=== PATIENT | male | born 1945 | race Two or more races ===

== ENCOUNTER 2016-12-26 13:08 | Emergency (ER) | payer MEDICARE, MEDICAID ==
[~2016-12-26 13:08] MED LIST: ASPI81TA2 PO; LOSA50TA6 PO
[2016-12-26] MEDS ORDERED: KETOROLAC 15 MG/ML VIAL. IV ONE (15:45)
[2016-12-26] MEDS ORDERED: DIAZEPAM 10 MG/2 ML DISP.SYRIN. IV ONE (15:45)
--- NOTE | 2016-12-26 15:57 | ED.ADGEN ---
Past Medical History Past Medical History: Hypertension, Other Additional Past Medical Histor: Vertigo, Kidney stones. Past Surgical History: No Surgical History Alcohol Use: None Drug Use: None Adult General Chief Complaint Chief Complaint: LOWER EXT PAIN HPI HPI Patient is a 71 year old man, history of vertigo, renal calculi, hypertension, who presents to the emergency department with a complaint of right flank pain over the past several days, with pain in his right buttock rating down into his right leg and right lower abdomen. Patient states he's had pain coming and going over the past several months. Over the past several days however the pain is began radiating into his leg. He denies any dysuria, any frequency or urgency , any hematuria. He states that the pain he is experiencing at this time is similar to the pain experienced with his previous renal calculi. Denies any nausea or vomiting, denies any focal weakness, states he does have some numbness in the lateral aspect of the right leg. Denies any injuries. Denies any shortness of breath or chest pain, any fevers or chills. Patient has been using ibuprofen at home, last dose was at 9:00 this morning. Denies any other medications aside from his blood pressure medication. Patient is primarily Bengali speaking, translation is assisted by family at bedside at patient's request. Review of Systems Review of Systems Constitutional: Denies fever or chills. [] Eyes: Denies change in visual acuity. [] HENT: Denies nasal congestion or sore throat. [] Respiratory: Denies cough or shortness of breath. [] Cardiovascular: Denies chest pain or edema. [] GI: Patient with right flank pain radiate down into the right leg, buttock and right lower quadrant of the abdomen to a degree, denies nausea, vomiting, bloody stools or diarrhea. [] : Denies dysuria. [] Musculoskeletal: Right flank pain, Integument: Denies rash. [] Neurologic: Denies headache, focal weakness or sensory changes. [] Endocrine: Denies polyuria or polydipsia. [] Lymphatic: Denies swollen glands. [] Psychiatric: Denies depression or anxiety. [] Current Medications Current Medications Current Medications Medications (Trade) Dose Ordered Sig/John Start Time Stop Time Status Last Admin Dose Admin Diazepam (Valium) 5 mg 1X ONCE 12/26/16 15:45 12/26/16 15:49 DC 3/17/17 16:27 5 MG Ketorolac Tromethamine (Toradol) 10 mg 1X ONCE 12/26/16 15:45 12/26/16 15:49 DC 12/26/16 16:29 10 MG Allergies Allergies Allergies Coded Allergies Type Severity Reaction Last Updated Verified No Known Drug Allergies 04/10/16 No Physical Exam Physical Exam Constitutional: Well developed, well nourished, no acute distress, non-toxic appearance. [] HENT: Normocephalic, atraumatic, bilateral external ears normal, oropharynx moist, no oral exudates, nose normal. [] Eyes: PERRLA, EOMI, conjunctiva normal, no discharge. [] Neck: Normal range of motion, no tenderness, supple, no stridor. [] Cardiovascular:Heart rate regular rhythm, no murmur , S1, S2, rubs or gallops. [ ] Lungs & Thorax: Bilateral breath sounds clear to auscultation, no wheezing, rhonchi, rales. No chest wall tenderness or crepitus. [] Abdomen: Bowel sounds normal, soft, minimal tenderness to palpation in the right lower quadrant, patient has is pain radiating into the right lower extremity in the thigh region, and also in the lateral femur region, patient also with pain in the right buttock, difficulty bearing weight secondary to pain on that side, no masses, no pulsatile masses. [] Skin: Warm, dry, no erythema, no rash. [] Back: No tenderness, no CVA tenderness. [] Extremities: Tenderness in the piriformis region, although no spasm is identified patient has pain in the right CVA region, radiating down into the right buttock and right leg, difficulty ambulating secondary to pain, no cyanosis, no clubbing, ROM intact, no edema. [] Neurologic: Alert and oriented X 3, normal motor function, normal sensory function, no focal deficits noted. [] Psychologic: Affect normal, judgement normal, mood normal. [] Current Patient Data Vital Signs Vital Signs Date Time Temp Pulse Resp B/P Pulse Ox O2 Delivery O2 Flow Rate FiO2 12/26/16 15:02 72 18 150/95 97 Room Air 12/26/16 13:31 97.9 97.9 Lab Values Laboratory Tests Test 12/26/16 16:03 12/26/16 16:20 Urine Collection Type Unknown Urine Color Yellow Urine Clarity Clear Urine pH 6.0 Urine Specific Chavies 1.025 Urine Protein Negativemg/dL (NEG-TRACE) Urine Glucose (UA) Negativemg/dL (NEG) Urine Ketones (Stick) Negativemg/dL (NEG) Urine Blood Negative (NEG) Urine Nitrite Negative (NEG) Urine Bilirubin Negative (NEG) Urine Urobilinogen Dipstick 0.2mg/dL (0.2 mg/dL) Urine Leukocyte Esterase Negative (NEG) Urine RBC Rare/HPF (0-2) Urine WBC Rare/HPF (0-4) Urine Squamous Epithelial Cells Occ/LPF Urine Bacteria 0/HPF (0-FEW) Urine Mucus Marked/LPF White Blood Count 6.4x10^3/uL (4.0-11.0) Red Blood Count 4.53x10^6/uL (4.30-5.70) Hemoglobin 14.8g/dL (13.0-17.5) Hematocrit 43.9% (39.0-53.0) Mean Corpuscular Volume 97fL (79-100) Mean Corpuscular Hemoglobin 33pg (25-35) Mean Corpuscular Hemoglobin Concent 34g/dL (31-37) Red Cell Distribution Width 13.1% (11.5-14.5) Platelet Count 192x10^3/uL (140-400) Neutrophils (%) (Auto) 53% (31-73) Lymphocytes (%) (Auto) 35% (24-48) Monocytes (%) (Auto) 8% (0-9) Eosinophils (%) (Auto) 3% (0-3) Basophils (%) (Auto) 1% (0-3) Neutrophils # (Auto) 3.4x10^3uL (1.8-7.7) Lymphocytes # (Auto) 2.2x10^3/uL (1.0-4.8) Monocytes # (Auto) 0.5x10^3/uL (0.0-1.1) Eosinophils # (Auto) 0.2x10^3/uL (0.0-0.7) Basophils # (Auto) 0.0x10^3/uL (0.0-0.2) Sodium Level 146mmol/L (136-145) H Potassium Level 4.0mmol/L (3.5-5.1) Chloride Level 109mmol/L (98-107) H Carbon Dioxide Level 27mmol/L (21-32) Anion Gap 10 (6-14) Blood Urea Nitrogen 11mg/dL (8-26) Creatinine 1.2mg/dL (0.7-1.3) Estimated GFR (Cockcroft-Gault) 59.7 BUN/Creatinine Ratio 9 (6-20) Glucose Level 111mg/dL (70-99) H Calcium Level 9.1mg/dL (8.5-10.1) Total Bilirubin 0.6mg/dL (0.2-1.0) Aspartate Amino Transferase (AST) 15U/L (15-37) Alanine Aminotransferase (ALT) 33U/L (16-63) Alkaline Phosphatase 139U/L (46-116) H Total Protein 7.3g/dL (6.4-8.2) Albumin 3.9g/dL (3.4-5.0) Albumin/Globulin Ratio 1.1 (1.0-1.7) Laboratory Tests 12/26/16 16:20 Laboratory Tests 12/26/16 16:20 Radiology/Procedures Radiology/Procedures [] [facility] [address] [place] [address] IMAGING REPORT Signed PATIENT: AMBREEN HERNANDEZ ACCOUNT: [id number] : 1945 LOCATION: ER AGE: 71 SEX: M EXAM STATUS: REG ER ORD. PHYSICIAN: BLAKE GREENFIELD DO REASON: R flank pain/hx renal calculi PROCEDURE: ABDOMEN PELVIS WO CONTRAST Examination: CT of the abdomen pelvis without contrast History: History of right-sided flank pain for one month radiating down the right leg Comparison: None available Technique: Axial CT images of the abdomen pelvis were performed without contrast. Coronal Sagittal reformats were performed. PQRS Compliance Statement: One or more of the following individualized dose reduction techniques were utilized for this examination: 1. Automated exposure control 2. Adjustment of the mA and/or kV according to patient size 3. Use of iterative reconstruction technique Findings: Minimal left lung base atelectasis. No evidence of free air identified in the abdomen. The evaluation of the solid organs is limited due to lack of IV contrast. The evaluation of the bowel is limited due to lack of oral contrast. The noncontrasted liver, spleen, adrenals grossly appears unremarkable. The gallbladder is mildly distended. The stomach is mildly distended. Small paraesophageal subcentimeter densities probably tiny lymph nodes identified. The visualized pancreas grossly appears unremarkable. The small bowel is nondilated. The appendix grossly appears unremarkable. Feces and gas noted throughout the colon. Punctate 4 mm intrarenal collecting system calculus identified in the right kidney. Few intrarenal collecting system calculi identified in the left kidney with the largest measuring 7 mm in the superior pole of the left kidney. There is a tiny exophytic 8 mm density identified in the midpole and in the posterior midpole of the left kidney could be cysts or cystic lesions. No evidence of hydronephrosis identified. Mild prostatomegaly. The urinary bladder is mildly distended. There is a tiny calcification measuring 2 mm identified in the superior tip of the urinary bladder best seen on series 2 image 164. Mild degenerative changes lumbar spine. Impression: 1. Tiny subcentimeter bilateral intrarenal collecting system calculi. No evidence of hydronephrosis. 2. 8 mm opacities projecting from the left kidney could be cysts or cystic lesions are difficult to characterize on this examination and follow-up nonemergent ultrasound kidneys is recommended. 3. Tiny 2 mm calcification identified within the superior anterior wall of the urinary bladder, nonspecific could be tiny wall calcification or a tiny bladder calculus. DICTATED and SIGNED BY: ALBA ARAUJO MD DATE: 12/26/16 6074 CC: CAMRON SHARP; BLAKE GREENFIELD DO ~ Course & Med Decision Making Course & Med Decision Making Pertinent Labs and Imaging studies reviewed. (See chart for details) Patient with right flank pain and right piriformis pain, with symptoms consistent with sciatica, but also concerning for recurrent renal calculi based on patient's history. Examination unable to isolate patient's symptoms, therefore after discussion with patient and family at bedside, CT of abdomen and pelvis obtained to rule out any intra-abdominal or renal source of abnormality, we'll treat pain with anti-inflammatories and muscle relaxers including Valium and Toradol this time, obtain urinalysis and laboratory studies. Patient voices understanding and agreement with this plan. CT of abdomen and pelvis does not reveal any evidence of concerning findings acutely, patient noted to have multiple small stones and some larger stones her up in the kidney itself, but no evidence of a stone at this time that is causing patient's symptoms, no evidence of hydronephrosis, patient's laboratory studies are also unremarkable. Findings also revealed mild degenerative changes in the spine. On reevaluation after receiving pain medications, patient is feeling better, ambulatory trial performed in the emergency department, patient uses a cane at baseline, and ambulates without difficulty with assistance. I did discuss findings as above with patient and family at bedside, recommended the patient follow-up with Dr. Guo of neurosurgery for additional evaluation of his symptoms they persist, patient and family voiced understanding and agreement with this plan, patient agreeable with plan to be discharged home, to use cane as directed, to use naproxen, cyclobenzaprine as directed, to follow- up with neurosurgery. Concerning symptoms to prompt return, and medication precautions also discussed. Patient discharged home in stable condition with family with plan as above. Dragon Disclaimer Dragon Disclaimer This electronic medical record was generated, in whole or in part, using a voice recognition dictation system. Departure Impression: Primary Impression: Acute right-sided back pain with sciatica Disposition: HOME, SELF-CARE Condition: IMPROVED Scripts Naproxen 250 Mg [id number] Mg PO BID PRN PAIN #10 Prov:BLAKE GREENFIELD DO 12/26/16 Cyclobenzaprine Hcl 10 Mg [id number] Mg PO TID PRN PAIN #12 TAB Prov:BLAKE GREENFIELD DO 12/26/16 BLAKE GREENFIELD DO Dec 26, 2016 15:57
[2016-12-26 16:14] LABS: BILIRUBIN,URINE NEGATIVE (NEG); GLUCOSE,URINE NEGATIVE (NEG); NITRITE,URINE NEGATIVE (NEG); PROTEIN,URINE NEGATIVE (NEG-TRACE); UROBILINOGEN,URINE 0.2 mg/dL (0.2 mg/dL)
--- NOTE | 2016-12-26 16:26 | RAD ---
Examination: CT of the abdomen pelvis without contrast History: History of right-sided flank pain for one month radiating down the right leg Comparison: None available Technique: Axial CT images of the abdomen pelvis were performed without contrast. Coronal Sagittal reformats were performed. PQRS Compliance Statement: One or more of the following individualized dose reduction techniques were utilized for this examination: 1. Automated exposure control 2. Adjustment of the mA and/or kV according to patient size 3. Use of iterative reconstruction technique Findings: Minimal left lung base atelectasis. No evidence of free air identified in the abdomen. The evaluation of the solid organs is limited due to lack of IV contrast. The evaluation of the bowel is limited due to lack of oral contrast. The noncontrasted liver, spleen, adrenals grossly appears unremarkable. The gallbladder is mildly distended. The stomach is mildly distended. Small paraesophageal subcentimeter densities probably tiny lymph nodes identified. The visualized pancreas grossly appears unremarkable. The small bowel is nondilated. The appendix grossly appears unremarkable. Feces and gas noted throughout the colon. Punctate 4 mm intrarenal collecting system calculus identified in the right kidney. Few intrarenal collecting system calculi identified in the left kidney with the largest measuring 7 mm in the superior pole of the left kidney. There is a tiny exophytic 8 mm density identified in the midpole and in the posterior midpole of the left kidney could be cysts or cystic lesions. No evidence of hydronephrosis identified. Mild prostatomegaly. The urinary bladder is mildly distended. There is a tiny calcification measuring 2 mm identified in the superior tip of the urinary bladder best seen on series 2 image 164. Mild degenerative changes lumbar spine. Impression: 1. Tiny subcentimeter bilateral intrarenal collecting system calculi. No evidence of hydronephrosis. 2. 8 mm opacities projecting from the left kidney could be cysts or cystic lesions are difficult to characterize on this examination and follow-up nonemergent ultrasound kidneys is recommended. 3. Tiny 2 mm calcification identified within the superior anterior wall of the urinary bladder, nonspecific could be tiny wall calcification or a tiny bladder calculus.
[2016-12-26 16:29] LABS: BASO % 1 % (0-3); EOS % 3 % (0-3); HEMATOCRIT 43.9 % (39.0-53.0); HEMOGLOBIN 14.8 g/dL (13.0-17.5); LYMPH # 2.2 x10^3/uL (1.0-4.8); LYMPH % 35 % (24-48); MEAN CORPUSCULAR HEMOGLOBIN 33 pg (25-35); MEAN CORPUSCULAR HGB CONC 34 g/dL (31-37); MEAN CORPUSCULAR VOLUME 97 fL (79-100); MONO % 8 % (0-9); NEUT % 53 % (31-73); PLATELET COUNT 192 x10^3/uL (140-400); RED BLOOD COUNT 4.53 x10^6/uL (4.30-5.70); RED CELL DISTRIBUTION WIDTH 13.1 % (11.5-14.5); WHITE BLOOD COUNT 6.4 x10^3/uL (4.0-11.0)
[2016-12-26 16:34] LABS: RBC,URINE RARE /HPF (0-2)
[2016-12-26 16:35] LABS: BACTERIA,URINE 0 /HPF (0-FEW); SQUAMOUS EPITHELIAL CELL,UR OCC /LPF; WBC,URINE RARE /HPF (0-4)
[2016-12-26 16:47] LABS: CALCIUM 9.1 mg/dL (8.5-10.1); CREATININE 1.2 mg/dL (0.7-1.3); GFR 59.7
[2016-12-26 16:55] LABS: ALBUMIN 3.9 g/dL (3.4-5.0); ALBUMIN/GLOBULIN RATIO 1.1 (1.0-1.7); TOTAL BILIRUBIN 0.6 mg/dL (0.2-1.0); TOTAL PROTEIN 7.3 g/dL (6.4-8.2)
[2016-12-26] MEDS ORDERED: CYCL10TA2 PO (18:12)
[2016-12-26] MEDS ORDERED: NAPR250T2 PO (18:12)
[2016-12-26 19:13] VITALS: BP 147/80
== END 2016-12-26 19:13 | disposition home or self-care (01) ==
LOC: ER 13:08
DX: M54.41 Lumbago with sciatica, right side (principal); I10 Essential (primary) hypertension; Z87.442 Personal history of urinary calculi
CPT/HCPCS: 36415; 74176; 80053; 81001; 85027; 96374; 96375; 99285; J1885; J3360